=== PATIENT | female | born 1985 | race Caucasian/White ===

== ENCOUNTER 2017-01-31 13:11 | Emergency (ER) | payer MEDICAID ==
[2017-01-31 13:49] LABS: BASOPHIL % 0.5 % (0-2); PLATELET COUNT 199 x10^3mcL (130-400); RED CELL DISTRIBUTION WIDTH 12.6 % (11.5-14.5)
[2017-01-31 14:12] LABS: CALCIUM 8.3 mg/dL (8.5-10.1); CARBON DIOXIDE 28.1 mmol/L (21-32); CHLORIDE SERUM 104 mmol/L (98-107); CREATININE SERUM 0.6 mg/dL (0.6-1.0); GFR1 > 60 mL/min; GLUCOSE SERUM 101 mg/dL (74-106); POTASSIUM SERUM 3.9 mmol/L (3.5-5.1); SODIUM SERUM 139 mmol/L (136-145)
[2017-01-31 14:13] LABS: microscopic required? YES; urine erythrocyte 2+ (NEGATIVE)
[2017-01-31 14:21] LABS: ALBUMIN 3.6 g/dL (3.4-5.0); ALKALINE PHOSPHATASE 73 U/L (46-116); ALT/SGPT 18 U/L (14-59); AMYLASE 109 U/L (25-115); AST/SGOT 16 U/L (15-37); BILIRUBIN TOTAL 0.34 mg/dL (0.20-1.00); LIPASE 355 IU/L (73-393); T4(THYROXINE) 6.9 ug/dL (4.7-13.3); TOTAL PROTEIN, SERUM 6.8 g/dL (6.4-8.2)
[2017-01-31 14:22] LABS: CHOLESTEROL 213 mg/dL (<200); HDL CHOLESTEROL 64 mg/dL (40-60)
[2017-01-31 14:34] LABS: AMPHETAMINE QUAL UR NONE DETECTED (NEG <=1000)
[2017-01-31 14:59] VITALS: BP 119/77
== END 2017-01-31 15:06 | disposition home or self-care (01) ==
LOC: ED 13:11
PROVIDERS: Emergency Medicine
DX: R11.10 Vomiting, unspecified (principal); R10.13 Epigastric pain; R42 Dizziness and giddiness; Z88.0 Allergy status to penicillin
CPT/HCPCS: 80307; 83880; J1885; J2405; J7030

== ENCOUNTER 2019-07-27 23:25 | Emergency (ER) | payer OTHER, MEDICAID ==
[~2019-07-27] VITALS: Ht 162.6 cm; Wt 57.4 kg
[2019-07-27 23:34] VITALS: Ht 162.6 cm; Wt 57.4 kg
[2019-07-28 00:19] VITALS: BP 128/78
== END 2019-07-28 00:19 | disposition home or self-care (01) ==
LOC: ED 23:25
DX: K02.9 Dental caries, unspecified (principal); R22.0 Localized swelling, mass and lump, head; Z88.0 Allergy status to penicillin
CPT/HCPCS: J2920

== ENCOUNTER 2019-07-29 22:18 | Emergency (ER) | payer OTHER ==
[~2019-07-29] VITALS: Ht 162.6 cm; Wt 57.6 kg
[2019-07-29 22:40] VITALS: Ht 162.6 cm; Wt 57.6 kg
[2019-07-29 23:43] VITALS: BP 133/98
== END 2019-07-29 23:43 | disposition home or self-care (01) ==
LOC: ED 22:18
DX: T36.8X5A Adverse effect of other systemic antibiotics, initial encounter (principal); T37.3X5A Adverse effect of other antiprotozoal drugs, initial encounter; K02.9 Dental caries, unspecified; Z88.0 Allergy status to penicillin; Y92.89 Other specified places as the place of occurrence of the external cause